=== PATIENT | female | born 1960 | race Hispanic/Latino ===

== ENCOUNTER → 2022-09-15 | Outpatient (CLI) | payer MEDICARE, MEDICAID ==
[~2022-09-15] MED LIST: IOHEXOL 350 MG/ML 100ML INFUS..BTL IV ONE; METOPROLOL TARTRATE 1 MG/ML 5ML VIAL IV ONE; NITROGLYCERIN 4.1 GM SPRAY TL ONE
== END | disposition home or self-care (01) ==
LOC: RAH 08:12
PROVIDERS: ATTEND Internal Medicine
DX: R07.9 Chest pain, unspecified (principal); M47.815 Spondylosis without myelopathy or radiculopathy, thoracolumbar region
CPT/HCPCS: 75574; J3490; Q9967